=== PATIENT | male | born 1970 | race Caucasian/White ===

== ENCOUNTER 2022-06-20 15:08 | Emergency (ER) | payer OTHER ==
[~2022-06-20] VITALS: Ht 175.3 cm; Wt 122.5 kg
== END 2022-06-20 20:15 | disposition home or self-care (01) ==
LOC: ER 15:08
DX: S61.323A Laceration with foreign body of left middle finger with damage to nail, initial encounter (principal); W31.89XA Contact with other specified machinery, initial encounter; Y93.89 Activity, other specified; Y92.89 Other specified places as the place of occurrence of the external cause

== ENCOUNTER 2023-03-15 11:44 | Outpatient (CLI) | payer OTHER | END 2023-03-15 11:52 | disposition home or self-care (01) | LOC: RAD 11:44 | PROVIDERS: ATTEND Internal Medicine Cardiovascular Disease | DX: J44.9 Chronic obstructive pulmonary disease, unspecified (principal) ==

== ENCOUNTER 2024-05-18 12:49 | Outpatient (CLI) | payer OTHER | END 2024-05-18 12:59 | disposition home or self-care (01) | LOC: SONOGRAMA 12:49 | PROVIDERS: ATTEND Internal Medicine Gastroenterology | DX: R16.0 Hepatomegaly, not elsewhere classified (principal) ==